=== PATIENT | male | born 1955 | race Caucasian/White ===

== ENCOUNTER → 2017-09-25 08:36 | Outpatient (REF) | payer SELFPAY ==
[2017-09-27 11:31] LABS: Mumps Antibody IgG Positive
== END ==
LOC: LBO 08:36
PROVIDERS: PCP Family Medicine; Visit Provider Nurse Practitioner Family
DX: Z01.84 Encounter for antibody response examination (principal)

== ENCOUNTER 2019-03-12 08:29 | Outpatient (CLI) | payer OTHER, SELFPAY ==
[2019-03-12 09:57] LABS: Calculated LDL 102 mg/dL (<100); Cholesterol 175 mg/dL (<200); HDL Cholesterol 60 mg/dL (40-60); Triglyceride 66 mg/dL (<150)
[2019-03-13 09:15] LABS: PSA, Screening 1.1 ng/mL (0.0-4.5)
== END 2019-03-12 08:49 ==
PROVIDERS: PCP Family Medicine; Visit Provider Family Medicine
DX: Z00.00 Encounter for general adult medical examination without abnormal findings (principal); Z13.220 Encounter for screening for lipoid disorders; Z12.5 Encounter for screening for malignant neoplasm of prostate
CPT/HCPCS: 36415; 80061; 84153

== ENCOUNTER 2019-09-19 13:52 | Outpatient (REF) | payer OTHER, SELFPAY ==
[2019-09-20 18:05] LABS: COVID-19 RT-PCR Result NEGATIVE (Negative)
== END 2019-09-19 14:12 ==
LOC: LBN 13:52
PROVIDERS: PCP Family Medicine; Visit Provider Pediatrics
DX: Z11.59 Encounter for screening for other viral diseases (principal)
CPT/HCPCS: U0003

== ENCOUNTER 2019-11-08 17:54 | Outpatient (REF) | payer OTHER, SELFPAY | END 2019-11-08 18:14 | LOC: LBN 17:54 | PROVIDERS: PCP Family Medicine; Visit Provider Pediatrics | DX: Z20.828 Contact with and (suspected) exposure to other viral communicable diseases (principal) | CPT/HCPCS: U0003 ==

== ENCOUNTER 2019-12-23 12:10 | Outpatient (CLI) | payer OTHER, SELFPAY ==
--- NOTE | 2019-12-23 12:00 | DI.RAD_ITS ---
EXAM: XR FINGER RT MIDDLE CLINICAL HISTORY: pain. TECHNIQUE: 2D digital imaging was performed. COMPARISON: No exams were available for comparison FINDINGS: BONES: No acute fracture is present. The bones are normally mineralized. JOINTS: No dislocation present. Smoothly marginated erosions are seen at the heads of the proximal p halanges of the middle and ring fingers and the middle phalanx of the middle finger. The joint space s are otherwise well maintained. SOFT TISSUE: There is soft tissue swelling of the middle finger. IMPRESSION: Marginal erosions at the PIP and DIP joints and soft tissue swelling. An inflammatory arthritis shou ld be considered. No acute fracture or dislocation. DATA REPOSITORY: RADIATION DOSE DELIVERED:
== END 2019-12-23 12:30 ==
PROVIDERS: PCP Family Medicine; Referring Provider Family Medicine; Visit Provider Orthopaedic Surgery
DX: M25.541 Pain in joints of right hand (principal); M79.89 Other specified soft tissue disorders
CPT/HCPCS: 73140

== ENCOUNTER 2020-02-27 11:46 | Outpatient (REF) | payer OTHER, SELFPAY ==
[2020-02-28 01:38] LABS: COVID-19 RT-PCR UVMMC Result Negative (Negative)
== END 2020-02-27 12:06 ==
LOC: LBN 11:46
PROVIDERS: PCP Family Medicine; Visit Provider Pediatrics
DX: Z11.52 Encounter for screening for COVID-19 (principal)
CPT/HCPCS: U0003

== ENCOUNTER 2020-06-14 11:19 | Outpatient (CLI) | payer OTHER, SELFPAY ==
--- NOTE | 2020-06-14 11:00 | DI.RAD_ITS ---
Exam(s) XR ANKLE LT COMPLETE EXAM: XR ANKLE LT COMPLETE CLINICAL HISTORY: abkle injury TECHNIQUE: 2D digital imaging was performed. COMPARISON: No exams were available for comparison FINDINGS: BONES: No acute fracture is present. No bony destructive lesion is seen. There is a spur at the anter ior aspect of the distal tibia. JOINTS:The ankle mortise is normally aligned. SOFT TISSUE: Normal. IMPRESSION: No acute fracture or dislocation. DATA REPOSITORY: RADIATION DOSE DELIVERED:
== END 2020-06-14 11:20 | disposition home or self-care (01) ==
LOC: DIORS 11:19
PROVIDERS: PCP Family Medicine; Referring Provider Family Medicine; Visit Provider Student in an Organized Health Care Education/Training Program
DX: S99.812A Other specified injuries of left ankle, initial encounter (principal); S86.092A Other specified injury of left Achilles tendon, initial encounter
CPT/HCPCS: 73610

== ENCOUNTER 2020-06-15 02:19 | Outpatient (CLI) | payer OTHER, SELFPAY ==
--- NOTE | 2020-06-15 07:30 | DI.MRI_ITS ---
Exam(s) MR LOWER JOINT LT WO EXAM: MR LOWER JOINT LT WO CLINICAL HISTORY: Pre-existing pain,ACUTE ACHILLES RUPTURE,S86.012A TECHNIQUE: Multiplanar multisequence MRI was performed without intravenous contrast. COMPARISON: CR XR ANKLE LT COMPLETE from 06/14/2020 FINDINGS: BONES/JOINTS: No acute fracture. Mild marrow edema and small subchondral cysts are seen at the later al aspect of the tibial talar joint. This may be posttraumatic or degenerative in nature. Marrow si gnal is otherwise within normal limits. The talar dome is smooth. The ankle mortise is maintained. N o joint effusion is present. LIGAMENTS: The tibiofibular and calcaneofibular ligaments are intact. The anterior talofibular ligame nt appears intact. The posterior talofibular ligament suggest some thickening, but the fibers appear intact. This may represent a sprain. The deltoid ligament is intact. The syndesmosis is unremarkab le. Sinus tarsi is normal. MUSCULOTENDINOUS STRUCTURES: Achilles tendon: There is a large oblique tear of the Achilles tendon 9 cm from its attachment site o n the calcaneus. There may be a few attached fibers laterally. There is thickening and intermediate signal in the Achilles tendon which may represent underlying tendinosis. Plantar fascia: Unremarkable. Anterior Extensor tendons: Unremarkable. Posterior Tibialis: Unremarkable. Flexor Digitorum longus: Unremarkable. Flexor Hallucis longus: Unremarkable. Peroneus longus: Unremarkable. Peroneus brevis:Unremarkable. SOFT TISSUES: There is edema seen in the soft tissues posteriorly. OTHER FINDINGS: None. IMPRESSION: 1. Large Achilles tendon tear. There may be some attach fibers laterally. DATA REPOSITORY:
== END 2020-06-15 02:39 ==
PROVIDERS: PCP Family Medicine; Visit Provider Student in an Organized Health Care Education/Training Program
DX: M25.572 Pain in left ankle and joints of left foot (principal); S86.012A Strain of left Achilles tendon, initial encounter
CPT/HCPCS: 73721

== ENCOUNTER 2021-09-07 03:12 | Outpatient (CLI) | payer MEDICARE, SELFPAY ==
[2021-09-07 09:54] LABS: Anion Gap 7.6 mmol/L (3-11); BUN 23 mg/dL (7-18); CO2 30.4 mmol/L (21.0-32.0); CREATININE 1.1 mg/dL (0.70-1.30); Calcium 8.8 mg/dL (8.5-10.1); Calculated LDL 88 mg/dL (<100); Chloride 103 mmol/L (98-107); Cholesterol 163 mg/dL (<200); Glucose 109 mg/dL (74-106); HDL Cholesterol 60 mg/dL (40-60); Potassium 3.9 mmol/L (3.5-5.1); Sodium 141 mmol/L (136-145); Triglyceride 75 mg/dL (<150)
== END 2021-09-07 03:13 | disposition home or self-care (01) ==
LOC: LBO 03:12
PROVIDERS: PCP Family Medicine; Visit Provider Family Medicine
DX: E78.5 Hyperlipidemia, unspecified (principal); E87.1 Hypo-osmolality and hyponatremia
CPT/HCPCS: 36415; 80048; 80061

== ENCOUNTER 2022-09-05 03:38 | Outpatient (CLI) | payer MEDICARE, SELFPAY ==
[2022-09-05 08:15] LABS: BUN 24 mg/dL (7-18); CREATININE 1.2 mg/dL (0.70-1.30); Calcium 8.7 mg/dL (8.5-10.1); Calculated LDL 91 mg/dL (<100); Chloride 103 mmol/L (98-107); Cholesterol 170 mg/dL (<200); Glucose 102 mg/dL (74-106); HDL Cholesterol 72 mg/dL (40-60); Potassium 3.7 mmol/L (3.5-5.1); Sodium 140 mmol/L (136-145); Triglyceride 38 mg/dL (<150)
[2022-09-05 18:53] LABS: PSA, Screening 1.4 ng/mL (<=4.5)
== END 2022-09-05 03:39 | disposition home or self-care (01) ==
LOC: LBO 03:38
PROVIDERS: PCP Family Medicine; Visit Provider Family Medicine
DX: E87.1 Hypo-osmolality and hyponatremia (principal); Z12.5 Encounter for screening for malignant neoplasm of prostate; E78.5 Hyperlipidemia, unspecified
CPT/HCPCS: 36415; 80048; 80061; 84153